=== PATIENT | female | born 1980 | race Caucasian/White ===

== ENCOUNTER 2018-03-09 21:11 | Inpatient (IN) | payer OTHER ==
[~2018-03-09] VITALS: Ht 160 cm; Wt 71.7 kg
--- NOTE | 2018-03-09 22:02 | ED PSYCHIATRIC COMPLAINT ---
History of Present Illness General Chief Complaint: Psychiatric Related Complaint Stated Complaint: +SI Source: patient, family, old records Exam Limitations: no limitations Vital Signs & Intake/Output Vital Signs & Intake/Output Vital Signs Date Time Temp Pulse Resp B/P B/P Pulse O2 O2 Flow FiO2 Mean Ox Delivery Rate 03/10 0639 97.4 68 18 124/71 98 Room Air 03/10 0010 98.0 90 20 138/89 98 03/09 2116 96.8 99 20 166/101 97 Room Air ED Intake and Output 03/10 0000 03/09 1200 Intake Total Output Total Balance Patient 157 lb Weight Allergies Coded Allergies: oxycodone (Severe, UPSET STOMACH 03/09/18) Triage Note: PT TO TRIAGE FOR +SI. PT REPORTS "TRIED TO OFF MYSELF TODAY, BY CUTTING WRIST." NO ACTIVE BLEEDING NOTED. PER PT "IT'S BEEN A LONG TIME COMING." PT REPORTS MANY TRIGGERS BUT REFUSED TO ELABORATE. DENIES ILLICIT DRUG USE. DENIES HI. CALM/COOPERATIVE. Triage Nurses Notes Reviewed? yes Onset: yesterday Duration: day(s):, changing over time, gone now Timing: recent history Severity: moderate, severe Associated Symptoms: injury, insomnia, suicidal ideation LMP (ages 10-50): unknown : No Patient currently breastfeeds: No HPI: 1 day prior to admission patient was frustrated with her life and daughter family would be better off without her so she abraded her right wrist with a moya in an attempt to kill herself. Prior to admission her significant other notified her family and brought her to the hospital for further management. She admits to recreational drug use of heroin cocaine and alcohol. She reports having poor eating habits insomnia. She is noncompliant with her medications for depression. 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 She denies fever chills nausea vomiting diarrhea abdominal pain chest pain shortness breath headache dysuria rash bleeding hallucination homicidal ideation. ([place] JEFFERS,Rogerio) Past History Travel History Traveled to [place] past 21 day No Medical History Any Pertinent Medical History? 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 No (Rogerio Hough MD) Review of Systems Review of Systems Constitutional: Reports: no symptoms. EENTM: Reports: no symptoms. Respiratory: Reports: no symptoms. Cardiovascular: Reports: no symptoms. GI: Reports: no symptoms. Genitourinary: Reports: no symptoms. Musculoskeletal: Reports: no symptoms. Skin: Reports: see HPI. Neurological/Psychological: Reports: see HPI, depressed, emotional problems. Hematologic/Endocrine: Reports: no symptoms. Immunologic/Allergic: Reports: no symptoms. All Other Systems: Reviewed and Negative (Rogerio Hough MD) Physical Exam Physical Exam General Appearance: well developed/nourished, alert, awake, anxious, mild distress Head: atraumatic, normal appearance Eyes: Bilateral: normal appearance, PERRL, EOMI. Ears, Nose, Throat: normal pharynx, normal ENT inspection, hearing grossly normal Neck: normal inspection, supple, full range of motion, no midline tenderness Respiratory: normal breath sounds, chest non-tender, no respiratory distress, quiet respiration, lungs clear Cardiovascular: regular rate/rhythm, normal peripheral pulses, norml femoral pulses equa Gastrointestinal: normal bowel sounds, soft, non-tender, no organomegaly Extremities: normal range of motion, no ligament instability Neurological/Psychiatric: no motor/sensory deficits, awake, agitated, alert, anxious, lead oxide mill tender II-XII nml as tested, oriented x 3 Appearance/Memory/Insight: impaired insight Behavoir/Eye Contact/Speech: cooperative, normal speech Thoughts/Hallucinations: no apparent hallucination Skin: intact, normal color, warm/dry SAD PERSONS SAD PERSONS Response Value Depression/Hopelessness? yes 2 Previous Attempts/Psych Care yes 1 Excessive Ethanol/Drug Use? yes 1 Rational Thinking Loss? yes 2 Single//? yes 1 Social Support? has support 0 Total 7 SAD PERSONS Done? yes (Rogerio Hough MD) Progress Differential Diagnosis: drug intoxication, drug overdose, drug withdrawal, electrolyte abnormality, hypoglycemia Plan of Care: Orders Procedure Date/time Status Regular Diet 03/10 B Active Admit to inpatient psych 03/10 0855 Active EKG 03/10 0855 Active Continuous Observation Monitor 03/10 0540 Active Continuous Observation Monitor 03/10 0140 Active Continuous Observation Monitor 05/10 2146 Active CIWA 03/09 2146 Active URINE 03/09 2146 Complete URINE DRUG SCREEN FOR ER ONLY 03/09 2146 Complete ACETOMINOPHEN 03/09 2146 Complete TSH REFLEX 03/09 2146 Complete SALICYLATE 03/09 2146 Complete ETHANOL 03/09 2146 Complete COMPREHENSIVE METABOLIC PANEL 03/09 2146 Complete CBC WITHOUT DIFFERENTIAL 03/09 2146 Complete ED CRISIS PSYCH CONSULT 03/09 2146 Active Laboratory Tests 03/10/18 0645: Urine Opiates Screen < 100, Methadone Screen < 40, Barbiturate Screen < 60, Ur Phencyclidine Scrn < 6.00, Amphetamines Screen 221, U Benzodiazepines Scrn < 85, Urine Cocaine Screen > 1000.0 H, Urine Cannabis Screen < 5.00, Urine Test NEGATIVE 03/09/180: Anion Gap 15, Estimated GFR > 60, BUN/Creatinine Ratio 11.1, Glucose 89, Calcium 8.7, Total Bilirubin 0.3, AST 28, ALT 31, Alkaline Phosphatase 98, Total Protein 7.9, Albumin 4.4, Globulin 3.5, Albumin/Globulin Ratio 1.3, TSH &T3 &Free T4 Intrp 2.560, CBC w Diff NO MAN DIFF REQ, RBC 3.97 L, MCV 94.9, MCH 30.7, MCHC 32.3 L, RDW 14.4, MPV 7.1 L, Gran % 57.3, Lymphocytes % 33.5, Monocytes % 8.3, Eosinophils % 0.4, Basophils % 0.5, Absolute Granulocytes 5.0, Absolute Lymphocytes 2.9, Absolute Monocytes 0.7 H, Absolute Eosinophils 0, Absolute Basophils 0, Salicylates < 1.0, Acetaminophen < 10.0 L, Serum Alcohol 197.0 Hand-Off Endorsed To: Bradly Kern MD Endorsed Time: 0700 Pending: consult (crisis), labs (utox) (Rogerio Hough MD) Departure Departure Disposition: STILL A PATIENT Condition: Stable Referrals: Kris Whelan MD (PCP/Family) Departure Forms: Customer Survey General Discharge Information (Rogerio Hough MD) Departure Clinical Impression Primary Impression: Depression with suicidal ideation Secondary Impressions: Alcohol intoxication Qualifiers: Complication of substance-induced condition: uncomplicated Qualified Code: F10.920 - Alcohol use, unspecified with intoxication, uncomplicated Psych Admission Note Psychiatric Admission: I have seen and evaluated ALEKSIEWICZ,SRIDEVI. I have also reviewed all the pertinent lab results and diagnostic results. SRIDEVI MARKHAM will be admitted to our inpatient Psychiatric unit for treatment and care. (Concha JEFFERS,Bradly Pedro)
[2018-03-09 22:09] LABS: ABSOLUTE BASOPHIL COUNT 0 /CUMM (0.0-0.2); ABSOLUTE EOSINOPHIL COUNT 0 /CUMM (0.0-0.7); ABSOLUTE LYMPH COUNT 2.9 /CUMM (1.2-3.4); ABSOLUTE MONOCYTE COUNT 0.7 /CUMM (0.10-0.60); BASOPHIL % 0.5 % (0.0-2.0); EOSINOPHIL % 0.4 % (0-5); GRANULOCYTE % 57.3 % (42.2-75.2); HEMATOCRIT 37.6 % (37-47); MEAN CORPUSCULAR HGB 30.7 PG (27.0-31.0); MEAN CORPUSCULAR HGB CONC 32.3 G/DL (33.0-37.0); MEAN CORPUSCULAR VOLUME 94.9 FL (81.0-99.0); MEAN PLATELET VOLUME 7.1 FL (7.4-10.4); PLATELET COUNT 347 /CUMM (130-400); RBC DISTRIBUTION WIDTH 14.4 % (11.5-14.5); RED BLOOD CELL CT 3.97 /CUMM (4.20-5.40); WHITE BLOOD CELL COUNT 8.8 /CUMM (4.8-10.8)
--- NOTE | 2018-03-10 08:26 | ED PSYCH CRISIS CONSULTATION ---
Crisis Consult Basic Assessment Date of Consult: 03/10/18 Responsible Person/Accompanied By: self/family Insurance Authorization: Insurance #1: Insurance name: SELF-PAY Phone number: Policy number: Group number: Authorization number: ED Provider: Patient's ED Provider: Rogerio Hough MD Primary Care Physician: Patient's PCP: Kris Whelan MD PCP's Current Psychiatrist: none Chief Complaint: Psychiatric Related Complaint Patient's Quote: I have a lot of rage Present Illness: Pt is a 37yo female presenting to [place] ED last evening with reports of SI and recent incident of cutting her wrist. Pt reports experiencing SI for the first time Tue evening and she cut her wrist with a moya causing it to bleed and texted a picture of it to her bf of 7 yrs. She reports recent conflict in their relationship and she has been abusing etoh and cocaine. She reports 3 day drinking binges typically of 1 litre of vodka and cocaine. She reports always using cocaine when drinking. She reports no hx of mental health or substance abuse tx. She reports her pcp in the past has tried her on Prozac and Wellbutrin but she reports never taking either consistently and is currently not taking medications. Pt reports last 3 days off and on SI. During consult she reports having SI but no active plan. Pt reports labile mood; being easily triggered and fighting a lot. She reports poor appetite, insomnia, loss of energy,sadness and feeling helpless. 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 Pt presents as depressed, cooperative and OX3. Pt reports her bf and family talked her in to coming to hospital for an evaluation but admits she thinks she needs inpatient tx. Case reviewed with Dr Mg. Recommendation for inpatient psychiatric treatment. Pt agrees with plan and signed voluntary form for admission to [facility]. Patient's Address: [address] [place], [place] [id number] Other Phone Number: Who Do You Live With? Significant Other Family/Informants Interviewed: collateral provided by pt mother Kit . She reports Concern that pt has been recently acting erratic possibly due to alcohol and drug use. She reports pt has been appearing depressed with mood swings. She reports pt bf contacted her yesterday after he received a text with picture from pt of her wrist cut. She reports concern that pt may harm self and hopes she can receive inpatient treatment. Allergies - Coded Allergies: oxycodone (Severe, UPSET STOMACH 03/09/18) Current Medications - Scheduled Medications Bupropion HCl (Bupropion XL) 150 MG TAB.ER.24H 1 TAB PO QAM MENTAL HEALTH #30 (Reported) Entered as Reported by Toño Sims on 03/10/18 0858 Fluoxetine HCl 20 MG TABLET 1 TAB PO DAILY MENTAL HEALTH #30 (Reported) Entered as Reported by Toño Sims on 03/10/18 0858 Norgestimate-Ethinyl Estradiol (Tri-Previfem Tablet) [id number] 28 TABLET 1 TAB PO DAILY BC #28 (Reported) Entered as Reported by Toño Sims on 03/10/18 0857 Laboratory Results: Laboratory Tests 03/10/18 0645: Urine Opiates Screen < 100, Methadone Screen < 40, Barbiturate Screen < 60, Ur Phencyclidine Scrn < 6.00, Amphetamines Screen 221, U Benzodiazepines Scrn < 85, Urine Cocaine Screen > 1000.0 H, Urine Cannabis Screen < 5.00, Urine Test NEGATIVE 03/09/18 2200: Anion Gap 15, Estimated GFR > 60, BUN/Creatinine Ratio 11.1, Glucose 89, Calcium 8.7, Total Bilirubin 0.3, AST 28, ALT 31, Alkaline Phosphatase 98, Total Protein 7.9, Albumin 4.4, Globulin 3.5, Albumin/Globulin Ratio 1.3, TSH &T3 &Free T4 Intrp 2.560, CBC w Diff NO MAN DIFF REQ, RBC 3.97 L, MCV 94.9, MCH 30.7, MCHC 32.3 L, RDW 14.4, MPV 7.1 L, Gran % 57.3, Lymphocytes % 33.5, Monocytes % 8.3, Eosinophils % 0.4, Basophils % 0.5, Absolute Granulocytes 5.0, Absolute Lymphocytes 2.9, Absolute Monocytes 0.7 H, Absolute Eosinophils 0, Absolute Basophils 0, Salicylates < 1.0, Acetaminophen < 10.0 L, Serum Alcohol 197.0 Past History Past Medical History Neurological: NONE EENT: NONE Cardiovascular: NONE Respiratory: NONE Gastrointestinal: NONE Hepatic: NONE Renal: NONE Musculoskeletal: NONE Psychiatric: depression Endocrine: NONE Blood Disorders: NONE Cancer(s): NONE 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 Past Surgical History Surgical History: non-contributory Psychosocial History 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 Drinking up to 1 liter vodka per day. Current Mental Status Mental Status Orientation: Person, Place, Situation Affect: Depressed Speech: WNL Neuro-vegetative: Appetite Decreased, Concentration Poor, Energy Decreased, Helpless, Loss of Interest, Sleep Disturbance Appearance Appearance- Dress/Hygiene: hospital scrubs; groomed; sitting up in bed; engaged Behaviors Thought Process: WNL Thought Content: WNL Memory: WNL Insight: WNL SI/HI Risk Assessment Past Suicidal Ideation/Attempts Yes Current Suicidal Ideation/Att Yes Past Homicidal Ideation/Att: No Current Homicidal Ideation/Attempts No Degree of Intent: Thoughts/No Intent Danger To: Self Gravely Disabled: Poor Impulse Control, Poor Judgment Risk Factors: high anxiety/distress, history of suicide atmpts, substance abuse, poor impulse control Lethality Ratin PTSD Checklist PTSD Done? patient declined ED Management Sitter: Yes Restraints: No DSM5/PS Stressors/Medical Prob Diagnosis' (DSM 5, Stressors, Medical): Unspecified Depression d/o F32.9 Alcohol Use d/o F10.20 Cocaine Use D/O 14.20 relationship conflict with bf parent-child conflict Current GAF: 25 Comments: pt reports stress and conflict with bf and family increasing due to her labile mood and substance use. Pt reporting SI and is easily triggered/fights a lot. Departure Disposition Psych Medical Clearance Date: 03/10/18 Medically Cleared at: 729 Time Started: 729 Time Ended: 814 Date Disposition Established: 03/10/18 Time Disposition Established: 829 Plan for Disposition - Modality: Inpatient Psychiatry Facility: [facility] Rationale for Disposition: Mood stabilization; medication assessment Type of IP Admission: Voluntary Referrals Kris Whelan MD (PCP/Family)
[2018-03-10] MEDS ORDERED: TRI-PREVIFEM T1 EACH PO (08:57)
[2018-03-10] MEDS ORDERED: BUPROPION XL150 MG PO (08:58)
[2018-03-10] MEDS ORDERED: FLUOXETINE HCL20 M3 PO (08:58)
--- NOTE | 2018-03-10 10:47 | IP CRISIS DIAG ASSESS PSYCH ---
Diagnostic Assessment Basic Assessment Insurance Authorization: Insurance #1: Insurance name: WENCESLAO [id number] Phone number: Policy number: Group number: Authorization number: [id number] Primary Care Physician: Patient's PCP: Kris Whelan MD PCP's Patient's Quote: I have a lot of rage Present Illness: Pt is a 37yo female presenting to [place] ED last evening with reports of SI and recent incident of cutting her wrist. Pt reports experiencing SI for the first time Tue evening and she cut her wrist with a moya causing it to bleed and texted a picture of it to her bf of 7 yrs. She reports recent conflict in their relationship and she has been abusing etoh and cocaine. She reports 3 day drinking binges typically of 1 litre of vodka and cocaine. She reports always using cocaine when drinking. She reports no hx of mental health or substance abuse tx. She reports her pcp in the past has tried her on Prozac and Wellbutrin but she reports never taking either consistently and is currently not taking medications. Pt reports last 3 days off and on SI. During consult she reports having SI but no active plan. Pt reports labile mood; being easily triggered and fighting a lot. She reports poor appetite, insomnia, loss of energy,sadness and feeling helpless. 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 Pt presents as depressed, cooperative and OX3. Pt reports her bf and family talked her in to coming to hospital for an evaluation but admits she thinks she needs inpatient tx. Case reviewed with Dr Mg. Recommendation for inpatient psychiatric treatment. Pt agrees with plan and signed voluntary form for admission to [facility]. Patient's Address: [address] [place] [address] Other Phone Number: Who Do You Live With? Significant Other Feel Safe Where You Live? Yes Feel Safe in Your Relationship Yes Marital Status: single Do You Have Children? No Primary Language? Kinyarwanda Language(s) Spoken At Home: Kinyarwanda Family/Informants Interviewed: collateral provided by pt mother Kit [phone]. She reports Concern that pt has been recently acting erratic possibly due to alcohol and drug use. She reports pt has been appearing depressed with mood swings. She reports pt bf contacted her yesterday after he received a text with picture from pt of her wrist cut. She reports concern that pt may harm self and hopes she can receive inpatient treatment. Allergies - Coded Allergies: oxycodone (Severe, UPSET STOMACH 03/09/18) Current Medications - Scheduled Medications Bupropion HCl (Bupropion XL) 150 MG TAB.ER.24H 1 TAB PO QAM MENTAL HEALTH #30 (Reported) Entered as Reported by Toño Sims on 03/10/18 0858 Fluoxetine HCl 20 MG TABLET 1 TAB PO DAILY MENTAL HEALTH #30 (Reported) Entered as Reported by Toño Sims on 03/10/18 0858 Norgestimate-Ethinyl Estradiol (Tri-Previfem Tablet) [id number] 28 TABLET 1 TAB PO DAILY BC #28 (Reported) Entered as Reported by Toño Sims on 03/10/18 0857 Consequences of Psych Med Use: pt reports hx of prozac and wellbutrin bot no current medications Lab Results: Laboratory Tests 03/10/18 0645: Urine Opiates Screen < 100, Methadone Screen < 40, Barbiturate Screen < 60, Ur Phencyclidine Scrn < 6.00, Amphetamines Screen 221, U Benzodiazepines Scrn < 85, Urine Cocaine Screen > 1000.0 H, Urine Cannabis Screen < 5.00, Urine Test NEGATIVE 03/09/18 2200: Anion Gap 15, Estimated GFR > 60, BUN/Creatinine Ratio 11.1, Glucose 89, Calcium 8.7, Total Bilirubin 0.3, AST 28, ALT 31, Alkaline Phosphatase 98, Total Protein 7.9, Albumin 4.4, Globulin 3.5, Albumin/Globulin Ratio 1.3, TSH &T3 &Free T4 Intrp 2.560, CBC w Diff NO MAN DIFF REQ, RBC 3.97 L, MCV 94.9, MCH 30.7, MCHC 32.3 L, RDW 14.4, MPV 7.1 L, Gran % 57.3, Lymphocytes % 33.5, Monocytes % 8.3, Eosinophils % 0.4, Basophils % 0.5, Absolute Granulocytes 5.0, Absolute Lymphocytes 2.9, Absolute Monocytes 0.7 H, Absolute Eosinophils 0, Absolute Basophils 0, Salicylates < 1.0, Acetaminophen < 10.0 L, Serum Alcohol 197.0 Toxicology Screen Completed? Yes Results: positive Symptoms of Use: etoh and cocaine Past History Abuse/Trauma History Trauma History/Current Trauma: emotional Victim or Perpretator? victim Patient's Age at Time of Trauma: 7 History of Trauma/Abuse Treatment? No Abuse/Trauma Treatment: father was alcoholic/strict/verbally abusive Legal History Current Legal Status: none Have you ever been arrested? 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 History Psych Treatment Psychiatric Treatment No Inpatient Treatment No Outpatient Treatment No Risk Factors: high anxiety/distress, history of suicide atmpts, substance abuse, poor impulse control Substance Use/Abuse History Drug Use/Abuse minimum 12mo Hx Substances Used/Abused No Substance Used/Abused Alcohol Last Used last night How much used/taken 1 litre vodka How often 3 day binges Substance Abuse Treatment Substance Abuse Treatment Past Substance Abuse [place] No Inpatient Treatment No Outpatient Treatment No Comments: pt reports 3 day binges of etoh and cocaine Education History Highest Level of Education: some college Preferred Learning Style: visual, auditory, experiential Current Mental Status Mental Status Orientation: Person, Place, Situation Affect: Depressed Speech: WNL Neuro-vegetative: Appetite Decreased, Concentration Poor, Energy Decreased, Helpless, Loss of Interest, Sleep Disturbance Appearance Appearance- Dress/Hygiene: hospital scrubs; groomed; sitting up in bed; engaged Behaviors Thought Process: WNL Thought Content: WNL Memory: WNL Insight: WNL SI/HI Risk Assessment - Minimum 6mo History- Past Suicidal Ideation/Attempts Yes Current Suicidal Ideation/Att Yes Past Homicidal Ideation/Att: No Current Homicidal Ideation/Attempts No Degree of Intent: Thoughts/No Intent Danger To: Self Gravely Disabled: Poor Impulse Control, Poor Judgment Risk Factors: high anxiety/distress, history of suicide atmpts, substance abuse, poor impulse control Lethality Ratin Needs/Init TX Plan/Goals: Psychiatric evaluation Medication assessment Individual, Family and Group Tx Coordinated discharge planning AUDIT-C Questionnaire: AUDIT-C Questionnaire: Response Value ETOH use in the past year 4 or more per week 4 # drinks typical/day 10 or more 4 6 or > drinks per occasion Daily/Almost Daily 4 Total 12 DSM5/PS Stressors/Medical Prob Diagnosis' (DSM 5, Stressors, Medical): Unspecified Depression d/o F32.9 Alcohol Use d/o F10.20 Cocaine Use D/O 14.20 relationship conflict with bf parent-child conflict Current GAF: 25 Comments: pt reports stress and conflict with bf and family increasing due to her labile mood and substance use. Pt reporting SI and is easily triggered/fights a lot.
--- NOTE | 2018-03-10 10:58 | SOCIAL WORKER PROG NOTE PSYCH ---
Social Work Progress Note Progress Note Determination Status: PENDED The services requested require additional review. You will be contacted regarding the status of this request if further information is needed. An authorization decision will be made within the required timeframes and details of that decision may be found under the member's authorization history. Member Name Member ID Member Subscriber Name Subscriber ID SRIDEVI MARKHAM [id number] SRIDEVI MARKHAM [id number] Pended Authorization # Client Authorization # Type of Request [id number] INITIAL Date of Admission/ Start of Services Requested From Submission Date 03/10/2018 03/10/2018 03/10/2018 Level of Service Type of Service Level of Care Type of Care INPATIENT/[facility] MENTAL HEALTH INPATIENT [facility]IENT [facility] - INPATIENT [facility]OSPITAL Reason Code [id number] Provider Name & Address Provider ID Provider Alternate ID NPI # for Authorization FRANCISCO STOCKTON [id number] [facility] [id number]
[2018-03-10 12:08] VITALS: BP 139/76
[2018-03-10 12:13] VITALS: BP 139/76
--- NOTE | 2018-03-10 13:39 | History & Physical ---
General Information and HPI MD Statement: I have seen and personally examined SRIDEVI MARKHAM and documented this H&P. The patient is a 37 year old F who presented with a patient stated chief complaint of ."tried to off Myself by cutting wrist." Source of Information: patient Exam Limitations: no limitations History of Present Illness: 37-year-old white female is not compliant with her medications for depression has had suicidal ideations for 2 days it has had conflicts with her boyfriend. Also uses some alcohol and cocaine and has a labile mood, lack of appetite, insomnia, lack of energy and feels sad and helpless and she lacerated her right wrist with a coin. For all these reasons is admitted for evaluation and treatment. Allergies/Medications Allergies: Coded Allergies: oxycodone (Severe, UPSET STOMACH 03/09/18) Home Med list Bupropion HCl (Bupropion XL) 150 MG TAB.ER.24H 1 TAB PO QAM MENTAL HEALTH ( Reported) Fluoxetine HCl 20 MG TABLET 1 TAB PO DAILY MENTAL HEALTH (Reported) Norgestimate-Ethinyl Estradiol (Tri-Previfem Tablet) [id number] 28 TABLET 1 TAB PO DAILY BC (Reported) Compliance With Home Meds: UNKNOWN Past History Travel History Traveled to [place] past 21 day No Medical History Neurological: NONE, restless leg syndrome EENT: NONE Cardiovascular: NONE Respiratory: NONE Gastrointestinal: NONE Hepatic: NONE Renal: NONE Musculoskeletal: NONE Psychiatric: depression Endocrine: NONE Blood Disorders: NONE Cancer(s): NONE 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 Home ETOH Use: occasional use Review of Systems Review of Systems Constitutional: Reports: see HPI. Exam & Diagnostic Data Last 24 Hrs of Vital Signs/I&O Vital Signs Date Time Temp Pulse Resp B/P B/P Pulse O2 O2 Flow FiO2 Mean Ox Delivery Rate 03/10 1213 97.8 79 139/76 03/10 1208 97.8 79 139/76 03/10 1019 98.0 71 18 128/70 99 Room Air 03/10 1015 98 Room Air 03/10 0639 97.4 68 18 124/71 98 Room Air 03/10 0010 98.0 90 20 138/89 98 03/09 2116 96.8 99 20 166/101 97 Room Air Intake & Output 03/10 1600 03/10 0800 03/10 0000 Intake Total Output Total Balance Patient 158 lb 157 lb Weight Physical Exam General Appearance Alert, Oriented X3, Cooperative, No Acute Distress Skin superficial laceration on the right wrist HEENT PERRLA, EOMI, Mucous Membr. moist/pink Neck Supple, No JVD, No thryomegaly, +2 Carotid Pulse wo Bruit, No LAD Lymphatic Axillary nl, Cervical nl Cardiovascular Regular Rate, No Murmurs Lungs Clear to Auscultation, Normal Air Movement Abdomen Soft, No Tenderness, No Hepatospenomegaly, No Masses Neurological Exam Findings: Normal Gait, Normal Speech, Strength at 5/5 X4 Ext, Normal Tone, Sensation Intact, Cranial Nerves 3-12 NL, Reflexes 2+ Cranial Nerves II through XII: Intact Extremities No Edema, Normal Pulses, No Tenderness/Swelling Vascular Normal Pulses, Pulses Symmetrical Last 24 Hrs of Labs/Tam: Laboratory Tests 03/10/18 0645: Urine Opiates Screen < 100, Methadone Screen < 40, Barbiturate Screen < 60, Ur Phencyclidine Scrn < 6.00, Amphetamines Screen 221, U Benzodiazepines Scrn < 85, Urine Cocaine Screen > 1000.0 H, Urine Cannabis Screen < 5.00, Urine Test NEGATIVE 03/09/18 2200: Anion Gap 15, Estimated GFR > 60, BUN/Creatinine Ratio 11.1, Glucose 89, Calcium 8.7, Total Bilirubin 0.3, AST 28, ALT 31, Alkaline Phosphatase 98, Total Protein 7.9, Albumin 4.4, Globulin 3.5, Albumin/Globulin Ratio 1.3, TSH &T3 &Free T4 Intrp 2.560, CBC w Diff NO MAN DIFF REQ, RBC 3.97 L, MCV 94.9, MCH 30.7, MCHC 32.3 L, RDW 14.4, MPV 7.1 L, Gran % 57.3, Lymphocytes % 33.5, Monocytes % 8.3, Eosinophils % 0.4, Basophils % 0.5, Absolute Granulocytes 5.0, Absolute Lymphocytes 2.9, Absolute Monocytes 0.7 H, Absolute Eosinophils 0, Absolute Basophils 0, Salicylates < 1.0, Acetaminophen < 10.0 L, Serum Alcohol 197.0 Assessment/Plan As Ranked By This Provider Problem List: 1. Alcohol intoxication Qualifiers Complication of substance-induced condition: uncomplicated Qualified Code: F10.920 - Alcohol use, unspecified with intoxication, uncomplicated 2. Depression with suicidal ideation Miscellaneous Miscellaneous Documentation Attending Case Discussed With: Robb Mg MD Primary Care Physician: Kris Whelan MD Patient sees these Specialists Psychiatry Level of Patient Care: [facility] Consults Needed: Consulting Specialty: Psychiatry Consulting Physician: Dr Fox Reason for Consult: depression suicidal ideations
[2018-03-10 16:08] VITALS: BP 121/72
[2018-03-10 16:13] VITALS: BP 121/72
[2018-03-10 18:09] VITALS: BP 128/69
[2018-03-10 20:07] VITALS: BP 133/75
[2018-03-11] VITALS (12 sets, daily range): BP systolic 120–134; BP diastolic 64–82
--- NOTE | 2018-03-11 12:02 | CPS PROVIDER INIT ASMT PSYCH ---
Psychiatric Admission Director Of Outpatient Services's Note Reviewed: Yes Patient Seen and Examined: Yes Identifying Information: Pt is a 37yo female presenting to [place] [facility] ED last evening with reports of SI and recent incident of cutting her wrist. Chief Complaint: I have a lot of rage Reaction to Hospitalization: The patient was admitted voluntarily History of Present Illness Onset of Illness: The patient presented to the emergency department the evening of 03/09/2018 and was evaluated by crisis intervention on 03/10/2018 and it was determined that the patient needed admission because of the suicidal ideation and also scratching her right forearm/wrist area with a moya. Circumstances Leading to Admission: Thoughts of suicide and self scratching Problem(s) Justifying Need for Admission: See above Past Psychiatric History Past Diagnosis(es)- if any: Unspecified Depression d/o F32.9 Alcohol Use d/o F10.20 Cocaine Use D/O 14.20 relationship conflict with bf parent-child conflict Past Precipitating Factors- if any: Substance use - Include inpatient and outpatient treatment Treatment History: Patient denied previous inpatient psychiatric admissions. History of Suicide Attempts or Gestures Record indicated there was a history of suicide attempts but no details were given Substance Abuse History: Alcohol use and cocaine use Allergies: Coded Allergies: oxycodone (Severe, UPSET STOMACH 03/09/18) Home Med List: The patient was not taking the prescribed Prozac and Wellbutrin, she is also on oral contraceptive pills - Include any medical condition(s) that may - impact the patient's recovery/remission Past Medical History: The patient is generally physically healthy Past History Medical History Neurological: NONE, restless leg syndrome EENT: NONE Cardiovascular: NONE Respiratory: NONE Gastrointestinal: NONE Hepatic: NONE Renal: NONE Musculoskeletal: NONE Psychiatric: depression Endocrine: NONE Blood Disorders: NONE Cancer(s): NONE 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 History of MRSA: No History of VRE: No History of CDIFF: No Isolation History: Standard Surgical History Surgical History: non-contributory Psychiatric Family/Social Hx Family History Psychiatric Illness: Was not explored Substance Use: Was not explored, please see the biopsychosocial assessment Suicides: Not explored Social History Living Situation: Please see biopsychosocial assessment Significant Relationships (family/friends): Please see biopsychosocial assessment Education: Please see biopsychosocial assessment Vocation/Occupation: Please see biopsychosocial assessment Legal: Please see biopsychosocial assessment Healthly Behaviors Screening Tobacco Screening Tobacco Use from ED Docu: Never used - If tobacco counseling indicated - the following topics are required. - #1 Recognizing dangerous situations. - #2 Coping Skills. - #3 Basic information about quitting. Status of Tobacco Cessation Counseling: Not Applicable Cessation Med Status Not Applicable Alcohol Screening - ETOH screen POS if BAL >=80 or Audit-C>= M4/F3 Audit-C Score from Diag Assess: 12 Blood Alcohol Level: Laboratory Tests 03/09 2200 Toxicology Serum Alcohol (<10 MG/DL) 197.0 Alcohol Use Screening Results: Pos per Audit C &/or BAL - If ETOH counseling indicated - the following topics are required. - #1 Express concern about the patient's - drinking at unhealthy levels, include informing - of national norms for moderate drinking: - men <= 14 drinks/week, max 4 drinks/occasion - women <= 7 drinks/week, max 3 drinks/occasion - #2 Providing feedback, including linking alcohol to - negative physical effects (liver injury, hypertension) - negative emotional effects (relationship problems and - depression) - negative occupational consequences (reduced work - performance) - #3 Advising the patient to abstain from alcohol or - to drink below national norms for moderate drinking - (as listed above). Status of ETOH Use Counseling: #1, #2 AND #3 Completed. Metabolic Screening - Screen if on a Neuroleptic Medication - Metabolic screening should include: - Blood Pressure, BMI, Glucose or Hgb A1c, & a - Lipid profile from within the past 365 days. Metabolic Screening ([X]) Not Applicable, patient not on a neuroleptic. Exam and Plan Mental Status Examination Ambulation Status: The patient had steady gait Appearance: Unremarkable appearance Attitude towards examiner: Patient was calm and cooperative Psychomotor activity: Showed normal psychomotor activity Behavior: No abnormal behaviors, no bizarre behaviors Quality of speech: Normal speech, not pressured, not slurred Affect: Good range of affect Mood: Anxious and somewhat depressed Suicidal Ideation: Denied thinking of suicide today Homicidal Ideation: Denied thoughts of violence or thoughts of homicide Hallucinations: Denied hallucinations Paranoid/Delusional Material: Denied feeling paranoid, there were no delusions during the interview Difficulties with thought organization: Patient was coherent, did not seem to have any thought disorder Insight: Partial insight Judgment: Seems to have good judgment at least in hypothetical situations Orientation: She was alert and oriented to time, place, and person. Cognition: Did not seem to have any difficulties with attention or concentration, no difficulties with information processing Memory Function: Did not seem to have any deficits in her short-term memory Estimate of intellectual functioning: Average Assets/Strengths Patient Identified Assets/Strengths: The patient is likable, well-educated, Impression/Plan Impression and Plan: 37-year-old white female who presents with suicidal ideation but also fairly daughter for detoxification from alcohol - Include all active medical diagnosis that require tx DSM 5 Diagnosis(es): Unspecified depressive disorder Alcohol use disorder - Initial Tx Plan for Active Psych & Medical Conditions Treatment Plan: Inpatient psychiatric care with safety checks every 15 minutes Alcohol detoxification using Ativan taper Nursing assessments, vital signs, and patient education in Biopsychosocial assessment by director social welfare, collateral information and aftercare planning Patient will be evaluated daily by psychiatrist for mental status updates as well as medication monitoring - Factors that would help patient function - in a less restrictive setting. Factors: Patient will be discharged when she has 2 consecutive days without thoughts of suicide
--- NOTE | 2018-03-11 17:07 | SOCIAL WORKER SOCIAL HX PSYCH ---
Social History Basic Assessment Insurance Authorization: Insurance #1: Insurance name: SELF-PAY Phone number: Policy number: Group number: Authorization number: [id number] Primary Care Physician: Patient's PCP: Kris Whelan MD PCP's Present Problem: Pt is a 37y.o. S/C/F with a history of unspecified depression, alcohol use, cocaine use, and heroin use in full remission, who presented to the hospital on 03/09/18 due to suicidal ideations and an attempt to kill herself by cutting her wrist while intoxicated. Pt was seen by crisis and voluntarily signed herself in to [facility] for psychiatric admission on 03/10/18. Upon meeting with this display card writer, pt presents as cooperative, coherent, pleasant, but disheveled and tearful at times. She denies SI/HI/AH/VH. She states she "only gets suicidal when she uses substances". She says she was in an argument with her boyfriend of 7 years which is why she cut her wrist with intent to . Pt says, "if I had a knife I would be right now but I didn't have a knife". Pt reports this is the first time she has ever actually done anything to harm herself as typically she "just wishes she were ". Pt says she and her boyfriend have been having problems lately because he "usually lets me do what I want and green party if I want to, but lately he has been trying to stop me". Pt says she typically goes on 3 days binges of cocaine and vodka at least once a week. However, denies missing work due to her substance use. 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 She reports using drugs since she was 17 years old, which she says she initially started to rebel against her father's strict parenting style. Pt denies any history of substance abuse treatment, and says she used heroin as well up until about 2 years ago when she weaned herself off. She denies any desire to use opiates since she stopped. Pt denies any history of mental health treatment until 2 years ago when she asked her PCP for an antidepressant and was placed on Prozac 20mg. Shortly after, she noticed a decrease in her libido which is why she switched to Wellbutrin. She says she didn't think the Wellbutrin was working but was feeling better so she stopped everything. She reports having increased irritability, poor appetite, poor sleep , and increased substance use. Pt admits that she is not sure if she wants to stop using substances and wants her family and boyfriend to "get off her ass" and "let her do what she wants". She reports her family and boyfriend have made her feel trapped and are always "breathing down her neck which makes her want to use more". However, pt does recognize "something is wrong" because she "knows it is not okay that she wanted to kill herself". She identifies her purpose for living is for the people she knows love her, such as her boyfriend, parents, siblings, and dog. Primary Language? Khmer Language(s) Spoken At Home: Khmer Living Situation Feel Safe Where You Are Living Yes Feel Safe in Relationships? Yes Comments: Resides with boyfriend of 7 years Allergies - Coded Allergies: oxycodone (Severe, UPSET STOMACH 03/09/18) Current Medications - Scheduled Medications Bupropion HCl (Bupropion XL) 150 MG TAB.ER.24H 1 TAB PO QAM MENTAL HEALTH #30 (Reported) Entered as Reported by Toño Sims on 03/10/18 0858 Fluoxetine HCl 20 MG TABLET 1 TAB PO DAILY MENTAL HEALTH #30 (Reported) Entered as Reported by Toño Sims on 03/10/18 0858 Last Taken: 03/08/18 1000 Norgestimate-Ethinyl Estradiol (Tri-Previfem Tablet) [id number] 28 TABLET 1 TAB PO DAILY BC #28 (Reported) Entered as Reported by Toño Sims on 03/10/18 0857 Last Taken: 03/08/18 1000 Past History Past Medical History Neurological: NONE, restless leg syndrome EENT: NONE Cardiovascular: NONE Respiratory: NONE Gastrointestinal: NONE Hepatic: NONE Renal: NONE Musculoskeletal: NONE Psychiatric: alcohol dependence, depression, substance abuse Endocrine: NONE Blood Disorders: NONE Cancer(s): NONE FITTING ROOM INSPECTOR/Reproductive: NONE Past Surgical History Surgical History: non-contributory /Family History Childhood Family Constellation: Pt states she lived with her mother, father, and 2 brothers. Brothers are currently 39 and 34. Pt states she has a closer relationship with her mother and 34 year old brother. She states her father was an alcoholic and extremely strict while growing up, resulting in her rebellious behavior. Primary Childhood Caretakers: father, mother Family Life During Childhood: Pt states she lived with her mother, father, and 2 brothers. Brothers are currently 39 and 34. Pt states she has a closer relationship with her mother and 34 year old brother. She states her father was an alcoholic and extremely strict while growing up, resulting in her rebellious behavior. DCF Involvement? No Relationship w/Mother: Pt states she continues to have a close relationship with her mother, but feels her mother is too overbearing, which causes pt to want to use substances more often. Relationship w/Father: Pt states her father lives in [place], [place]. She reports she still speaks with her father, however does not feel close to him due to his parenting style while she was growing up. Any Sibling(s)? Yes Sibling's Gender(s)/Age(s): male Sibling 1: (39), male Sibling 2: (34) Relationship w/Sibling(s): Pt reports being close with her 34 year old brother Relationship w/Friends: Pt reports most of her friends like to green party. She states her boyfriend "kind of " lets her do her own thing, which is why she thinks she has been with him for the past 7 years. Family Psych/Sub Abuse/Add Hx: drug of choice, treatment Other Comments: Pt denies having any children Abuse/Trauma History Trauma History/Current Trauma: emotional Victim or Perpretator? victim Patient's Age at Time of Trauma: 7 ("strict parents") History of Trauma/Abuse Treatment? No Abuse/Trauma Treatment: father was alcoholic/strict/verbally abusive Legal History Current Legal Status: none Pending Court Dates: N/A Have you ever been arrested No Hx of Juvenile Legal Charges? No Hx of Adult Legal Charges? 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 She denies missing work. 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 Pt states she is supposed to start school on Tuesday for her RN. She states she enjoys learning and going to school. Sense of humor, wanting to help and care for others Weaknesses: Substance use, poor insight, poor judgement, pre-contemplative stage Physical Limitations (Interventions): Denies History of Seizures? No History of Blackouts? No ADL Limitations: None Olive/Social/Peer Relations Pt states she ahs been with her boyfriend for the past 7 years. She states he lets her do what she wants most of the time which is why she thinks the relationship has worked. She admits she rebelled against her parents because they were so strict with her when she was growing up. Meaningful Activities: School, learning, making others laugh, helping others Is Spirituality Important to You? "I think someone wanted me to be here still or I would be . If I had a knife I would have been " Patient's Ethnicity: Barbadian Cultural/Ethnic Issues: "My father was very strict while I was growing up, so I rebelled. I realize now that he was right about most things." Psychiatric Treatment History Psych Treatment Inpatient Treatment Yes (Current at [facility]) Outpatient Treatment No (PCP prescribed medication) Reason for Treatment Pt states her PCP prescribed her Prozac 20mg about 2 years ago. She states she ended up having a decreased sex drive, which is why she ended up going on Wellbutrin, however she felt as if her Wellbutrin did not work- and therefore abruptly went off all her medication Response to Treatment Pt states her PCP prescribed her Prozac 20mg about 2 years ago. She states she ended up having a decreased sex drive, which is why she ended up going on Wellbutrin, however she felt as if her Wellbutrin did not work- and therefore abruptly went off all her medication Precipitating Factors: Pt states she asked her PCP for medication after she realized she just didn't care whether she lived or , had increased irritability, inconsistent sleep, inconsistent appetite, and increased susbtance use. 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 For how long since 17 years old Route of use oral Drug Use/Abuse:Min 12 mo hx 2 Substance Used/Abused Heroin First Use 17 years old Last Used 35 years old How much used/taken As often as possible, "people would give it to me" How often 3 day binges For how long approximately 20 years Route of use "snort, IV, smoke" Drug Use/Abuse:Min 12 mo hx 3 Substance Used/Abused Cocaine First Use 17 years old Last Used two days ago How much used/taken "I do an 8 ball a night" How often 3 days binges For how long since 17 years old Route of use snort Have Had Periods of Sobriety? Yes (about 2 or 3 weeks 3 years ago) Explain: Pt states she has been using since she was 17 years old, her longest sobriety was about 2 or 3 weeks, 3 years ago. She states she stopped using heroin 2 years ago because she did not like the withdrawal symptoms of not having it Relapse History? Yes Explain: Pt says she was sober for about 2 or 3 weeks about 3 years ago, and then started using again because she was "bored" Have You Ever Attended AA? No Do You Attend AA Currently? No Do You Have a Sponsor? 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 She states she plans on going back to school next Tuesday for her RN degree. 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 of Jobs in Last 5 Years: 2 Attendance: Normal Performance: Average Comments: Pt says she has never let her substance use get in the way of her employment. She states she will not use substances when she has work the next day. History Have You Been in The ? No Current Mental Status Mental Status Orientation: Person, Place, Situation Affect: Depressed, WNL (pleasant) Speech: WNL Neuro-vegetative: Appetite Decreased, Concentration Poor, Energy Decreased, Helpless, Loss of Interest, Sleep Disturbance Appearance Appearance- Dress/Hygiene: positive eye contact, tearful, disheveled Behaviors Thought Process: WNL Thought Content: WNL Memory: WNL Insight: Fair (pre-contemplative) SI/HI Risk Assessment Past Suicidal Ideation/Attempts Yes Current Suicidal Ideation/Att Yes Past Homicidal Ideation/Att: No Current Homicidal Ideation/Attempts No Degree of Intent: Self Destructive/No , States Intent, Thoughts/No Intent Danger To: Self Gravely Disabled: Poor Impulse Control, Poor Judgment Risk Factors: High Anxiety/Distress, SA/MH Hospitalization(s), Hx of suicide attempt(s), Lack of concern outcome, Poor impulse control, Substance Abuse Lethality Ratin - Conclusion and Recommendations for treatment - and discharge planning Summary: Pt is a 37y.o. S/C/F with a history of unspecified depression, alcohol use, cocaine use, and heroin use in full remission, who presented to the hospital on 03/09/18 due to suicidal ideations and an attempt to kill herself by cutting her wrist while intoxicated. Pt was seen by crisis and voluntarily signed herself in to [facility] for psychiatric admission. Upon meeting with this display card writer, pt presented as cooperative, coherent, pleasant, but disheveled and tearful at times. She continues to present with poor insight and judgement. Pt admits that she is not sure if she wants to stop using substances and wants her family and boyfriend to "get off her ass" and "let her do what she wants". She reports her family and boyfriend have made her feel trapped and are always "breathing down her neck which makes her want to use more". However, pt does recognize "something is wrong" because she "knows it is not okay that she wanted to kill herself". Pt will benefit from continued psychiatric admission at this time.
[2018-03-12] VITALS (8 sets, daily range): BP systolic 106–140; BP diastolic 64–70
--- NOTE | 2018-03-12 13:35 | CP SOUTH PROGRESS NOTE PSYCH ---
Psych (Inpt) Progress Note Progress Note Vital Signs Date Time Temp Pulse Resp B/P B/P Pulse O2 FiO2 03/12 1230 74 106/64 03/12 1153 74 106/64 03/12 0751 97.8 78 113/64 03/12 0741 97.9 78 113/64 03/11 2158 77 126/68 03/11 2012 98.5 75 130/67 03/11 2011 98.5 75 130/67 Mental Status Examination The patient had steady gait, she was alert and oriented to time, place, and person. Unremarkable appearance, Patient was calm and cooperative. Showed normal psychomotor activity No abnormal behaviors, no bizarre behaviors, Normal speech, not pressured, not slurred Good range of affect Anxious and somewhat depressed Denied thinking of suicide today Denied thoughts of violence or thoughts of homicide. Denied hallucinations, Denied feeling paranoid, there were no delusions during the interview Patient was coherent, did not seem to have any thought disorder, partial insight , Seems to have good judgment at least in hypothetical situations. She did not seem to have any difficulties with attention or concentration, no difficulties with information processing Did not seem to have any deficits in her short-term memory Assessment: Nydia is a 37-year-old White female who presents with suicidal ideation but also fairly daughter for detoxification from alcohol Diagnosis(es): Unspecified depressive disorder Alcohol use disorder Treatment Plan: Reduce CIWA to Q 4hours, Alcohol detoxification using Ativan taper Continue Prozac 40 mg daily Biopsychosocial assessment by social service director, collateral information and aftercare planning Patient will be evaluated daily by psychiatrist for mental status updates as well as medication monitoring well as medication monitoring
[2018-03-13] VITALS (8 sets, daily range): BP systolic 109–131; BP diastolic 57–78
--- NOTE | 2018-03-13 07:46 | CP SOUTH PROGRESS NOTE PSYCH ---
Psych (Inpt) Progress Note Progress Note The treatment team discussed the patient's progress, treatment plan, and aftercare plans. Treatment team included social work, nursing staff, therapy staff, and psychiatrist. Vital Signs Date Time Temp Pulse Resp B/P B/P Pulse O2 O2 Flow FiO2 Mean Ox Delivery Rate 03/136 97.1 87 109/62 03/13 0755 97.1 87 10962 03/12 2003 97.3 92 140/70 03/12 1951 97.3 92 140/70 03/12 1551 68 114/64 03/12 1544 68 11464 03/12 1230 74 106/64 03/12 1153 74 106/64 Mental Status Examination The patient feels ready for discharge and seemed to be in good spirits. She had steady gait, she was alert and oriented to time, place, and person. Patient was calm and cooperative. Showed normal psychomotor activity. No abnormal behaviors, no bizarre behaviors, Normal speech, not pressured, not slurred. Good range of affect, less anxious and less depressed. Denied thinking of suicide today, denied thoughts of violence or thoughts of homicide. Denied hallucinations, Denied feeling paranoid, there were no delusions during the interview. Patient was coherent, did not seem to have any thought disorder, partial insight, Seems to have good judgment at least in hypothetical situations. She did not seem to have any difficulties with attention or concentration, no difficulties with information processing. Did not seem to have any deficits in her short-term memory Assessment: Nydia is a 37-year-old White female who presents with suicidal ideation but also fairly daughter for detoxification from alcohol Diagnosis(es): Unspecified depressive disorder Alcohol use disorder Treatment Plan: Continue same treatment Likely D/C home tomorrow Continue Prozac 40 mg daily Biopsychosocial assessment by social media manager, collateral information and aftercare planning Patient will be evaluated daily by psychiatrist for mental status updates as well as medication monitoring
--- NOTE | 2018-03-13 15:54 | SOCIAL WORKER PROG NOTE PSYCH ---
Social Work Progress Note Progress Note Nydia talked about increased racing thoughts and hopelessness compounded by excessive drinking and cocaine use. She reported that she was at a bar and had 12 drinks (vodka) and used cocaine, got in her car and decided to cut her wrist with her moya. She reports going on "three day benders." She said she'll have a week inbetween with no use, but then starts getting the cravings/ itch to use. She said she has been experiencing this pattern for the last 2 years. She has never been in [facility] before. She said she was getting some Prozac for a couple of years through her PCP, but stopped taking it about 4-5 months ago. She is currently living with her boyfriend of 7 years. She did agree to have him in for a family meeting. His name is Sharath John [phone]. She reports no concerns with her relationship. She said she hurt herself, because she was having thoughts that her family would be better off without her. She is tired of this pattern and hurting them in the process. 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 She works 40 hours a week and just started this job 2 weeks ago. She said her Mom has been calling out for her. She talked about how she is a "social butterfly" she enjoys partying and being around people. She described her moods as being depressed some days and elevated others. She reports racing thoughts. Denies any suicidal thoughts today. Rates sad mood on a scale from 0-10 (10 being most severe) at a 2 today. Rates anxiety at a 0. Denies any AH/VH. Father is a recovering alcoholic. Maternal uncle has Schizophrenia. She is looking to connect with an outpatient provider for therapy and med management. She can't commit to an IOP due to work. She is interested in a referral to [facility]. I told her I'd like to have her boyfriend in and set up her referral. She is hoping to d/c tomorrow. I told her I'd like to discuss it with the team and get things in place. Called her boyfriend Sharath. He is only available for a phone conference tomorrow. I scheduled this for 10:30am.
--- NOTE | 2018-03-13 16:31 | SOCIAL WORKER PROG NOTE PSYCH ---
Social Work Progress Note Progress Note The services requested require additional review. You will be contacted regarding the status of this request if further information is needed. An authorization decision will be made within the required timeframes and details of that decision may be found under the member's authorization history. Member Name Member ID Member Subscriber Name Subscriber ID SRIDEVI MARKHAM [id number] 1980 SRIDEVI MARKHAM [id number] Pended Authorization # Client Authorization # Type of Request [id number] CONCURRENT Date of Admission/ Start of Services Requested From Submission Date 03/10/2018 03/13/2018 03/13/2018 Level of Service Type of Service Level of Care Type of Care INPATIENT/HLOC Mental Health Inpatient Inpatient [facility] - Inpatient Hospital Reason Code P76 Provider Name & Address Provider ID Provider Alternate ID NPI # for Authorization SCOTTY COPPOLA [id number] [facility] [id number]
[2018-03-14 08:04] VITALS: BP 118/60
[2018-03-14 08:07] VITALS: BP 118/60
[2018-03-14] MEDS ORDERED: PROZAC40 M1 PO (08:11)
[2018-03-14] MEDS ORDERED: TRI-PREVIFEM T1 EACH PO (08:12)
[2018-03-14] MEDS ORDERED: NALTREXONE HCL50 M1 PO (08:14)
--- NOTE | 2018-03-14 09:09 | Patient Discharge Instructions ---
Psych Discharge Inst General Discharge Information Reason for Admission: SI and recent incident of cutting her wrist Psy Discharge Primary Diag+ Unspecified Dep Disorder Psy Discharge Secondary Diag+ Alcohol Use Disorder Cocaine Use Disorder Summary Tests/Major Procedures There were no significant abnormalities in the laboratory testing, the patient's liver enzymes were within normal limits. Studies Pending at DC: None Patient Instructions Contact Information Your Psychiatrist on [facility] was Robb Mg MD * If you are experiencing an emergency related to this hospitalization, please call [phone] to contact the treating psychiatrist or the psychiatrist-on- call. * To Request a copy of your medical records, please contact the Medical Records Department at [phone]. * To request results of studies pending at the time of discharge, please call [phone]. * Continue your Medications until directed to stop by your Healthcare provider. General Medication Information Please continue to take your new medications and your continued home medications , unless otherwise indicated on your discharge medication list, or unless directed by your MD or CHALK MACHINE OPERATOR to stop them. Special Instructions Diet Regular Activity Normal - Tobacco Use Treatment Offered Post DC Medications Offered: Not Applicable Post DC Tobacco Treatment Plan: Not Applicable - EtOH/Drug Use D/O Treatment Offered Post DC Medications Offered: Script Given-See Med List Post DC EtOH/SubAbuse TX Plan: Other SubAbuse/Dual Pgm Metabolic Screening ([X]) Not Applicable, patient not on a neuroleptic. Advance Directives Does the Patient have Medical Advance Directives No/Refused further info Does Pt have Psychiatric Advance Directives? No/Refused further info Does Patient have a Designated Surrogate Decision Maker: No Information About Psychiatric Advance Directives Provided? Refused Discharge Plan Post Hospital Treatment Plan: IOP in the [place], see Alma Benjamin LCSW's notes
--- NOTE | 2018-03-14 10:21 | SOCIAL WORKER PROG NOTE PSYCH ---
Social Work Progress Note Progress Note Nydia was informed of our 10:30a phone conference with Sharath. She signed a release for [facility] and gave me her new address. Called [facility] [phone] and left a message for intake. Received a message from an Guillermina asking for clinical to be faxed over for review. Phone conference held with her significant other Sharath. Dr. Mg was also present. Sharath stated he was glad that she was receiving help and that it was overdue. He expressed that his only concern was when she was intoxicated, but when not intoxicated there was no self harm behavior or talk. Emphasized the need to have no alcohol in the home. He reports he doesn't drink much and it wasn't a problem. Denies guns in the home. Talked about setting up aftercare through [facility]. He is okay with her coming home today. Talked about getting involved in AA. She has never been to AA. Offered to provide her with a meeting book and encouraged her to try it out. Her Mom will pick her up today at 4:30pm. Her mood was stable today. No SI/HI. Eager to get home, get back to work. Has friends who will encourage her to maintain sobriety. Unfortunately due to having no active insurance we were not able to set up IOP. Connected her to outpatient at [facility] which she can self pay until she gets insurance on 04/22. Guillermina at [facility] gave her an intake for 04/03/18 1:30pm. She also gave info on financial assistance through the hospital that she may be elegible for. Filled out free med form for yNdia to get 2 weeks of meds filled, due to not having insurance.
--- NOTE | 2018-03-14 12:10 | CP SOUTH PROGRESS NOTE PSYCH ---
Psych (Inpt) Progress Note Progress Note The treatment team discussed the patient's progress, treatment plan, and aftercare plans. Treatment team included social work, nursing staff, therapy staff, and psychiatrist. Alma Benjamin LCSW and I met with patient while her fianace was on conference call Vital Signs Date Time Temp Pulse Resp B/P Pulse O2 03/14 0807 97.8 68 118/60 03/14 0804 97.8 68 118/60 03/13 2003 71 98 131/78 03/13 1959 98.7 71 131/78 03/13 1608 89 127/69 Mental Status Examination: The patient seemed to be in good spirits. She was alert and oriented to time, place, and person. Patient was calm and cooperative. She showed normal psychomotor activity. No abnormal or bizarre behaviors. Her speech was not pressured, nor slurred. Nydia reported that she was not feeling anxious, nor depressed. Denied thinking of suicide today, denied thoughts of violence or thoughts of homicide. Denied hallucinations, Denied feeling paranoid, there were no delusions during the interview. Patient was coherent, did not seem to have any thought disorder, partial insight, Seems to have good judgment at least in hypothetical situations. She did not seem to have any difficulties with attention or concentration, no difficulties with information processing. Did not seem to have any deficits in her short-term memory Assessment: Nydia is a 37-year-old White female who presents with suicidal ideation but also fairly daughter for detoxification from alcohol Diagnoses: Unspecified depressive disorder Alcohol use disorder Treatment Plan: D/C Home
--- NOTE | 2018-03-14 12:11 | DISCHARGE SUMMARY REPORT-PSYCH ---
Visit Information Visit Dates/Diagnosis' Admission Date: 03/10/18 Discharge Date: 03/14/18 Reason for Admission: SI and recent incident of cutting her wrist Psy Discharge Primary Diag: Unspecified Dep Disorder Psy Discharge Secondary Diag: Alcohol Use Disorder Cocaine Use Disorder Hospital Course Significant Lab Findings: Lab ALT 31 U/L 03/09/182199 AST 28 U/L 03/09/182199 Albumin 4.4 g/dL 03/09/182199 Alkaline Phosphatase 98 U/L 03/09/182199 Total Bilirubin 0.3 mg/dL 03/09/182199 Total Protein 7.9 g/dL 03/09/182199 Course Complications: The patient did not have any complications while she was on the inpatient psychiatric unit. Consultations: The patient had a history and physical examination by the metal stamper. Please refer to the patient's electronic health record for the details of the H&P. Allergies: Coded Allergies: oxycodone (Severe, UPSET STOMACH 03/09/18) Hospital Course/[place] Response: 03/14/2015: Mental Status Examination: The patient seemed to be in good spirits. She was alert and oriented to time, place, and person. Patient was calm and cooperative. She showed normal psychomotor activity. No abnormal or bizarre behaviors. Her speech was not pressured, nor slurred. Nydia reported that she was not feeling anxious, nor depressed. Denied thinking of suicide today, denied thoughts of violence or thoughts of homicide. Denied hallucinations, Denied feeling paranoid, there were no delusions during the interview. Patient was coherent, did not seem to have any thought disorder, partial insight, Seems to have good judgment at least in hypothetical situations. She did not seem to have any difficulties with attention or concentration, no difficulties with information processing. Did not seem to have any deficits in her short-term memory Assessment: Nydia is a 37-year-old White female who presents with suicidal ideation but also fairly daughter for detoxification from alcohol Diagnoses: Unspecified depressive disorder Alcohol use disorder Treatment Plan: D/C Home Discharge HBIPS - Tobacco Use Treatment Offered Post DC Medications Offered: Not Applicable Post DC Tobacco Treatment Plan: Not Applicable - EtOH/Drug Use D/O Treatment Offered Post DC Medications Offered: Script Given-See Med List Post DC EtOH/SubAbuse [place] Plan: Other SubAbuse/Dual Pgm Metabolic Screening - Screen if on a Neuroleptic Medication - Metabolic screening should include: - Blood Pressure, BMI, Glucose or Hgb A1c, & a - Lipid profile from within the past 365 days. Metabolic Screening ([X]) Not Applicable, patient not on a neuroleptic. Discharge Instructions General Discharge Information Multiple Neuroleptics: ([X]) Not Applicable Discharge Diet Regular Discharge Activity Normal DC Disposition: The patient will be discharged home Referrals Ordered Referrals Provider Referral 04/03/18 For Groups: [[facility]] [facility] Intake 04/03/18 1:30pm [address] [place] [address] Call [phone] for Financial Assistance Prescriptions Stop taking the following medications: Fluoxetine HCl (Fluoxetine HCl) 20 MG TABLET ORAL DAILY Qty = 30 Bupropion HCl (Bupropion XL) 150 MG TAB.ER.24H ORAL Every Morning Qty = 30 Continue taking these medications: Norgestimate-Ethinyl Estradiol (Tri-Previfem Tablet) [id number] 28 TABLET 1 Tablet ORAL DAILY Qty = 28 Comments: Last Taken:RESUME AT HOMELast Taken: Time: This prescription has been renewed Start taking the following new medications: Fluoxetine HCl (Prozac) 40 MG CAPSULE 1 Capsule ORAL Every Morning Qty = 30 No Refills Comments: Last Taken:03/14/18 Time:8AM Naltrexone HCl (Naltrexone HCl) 50 MG TABLET 1 Tablet ORAL DAILY Qty = 30 No Refills Comments: Last Taken:TO START AT HOME Time: Studies Pending at Discharge None Copies To: Bay Larson,
[2018-03-14 12:26] VITALS: BP 105/60
[2018-03-14 12:32] VITALS: BP 105/60
--- NOTE | 2018-03-14 16:12 | SOCIAL WORKER PROG NOTE PSYCH ---
Social Work Progress Note Faxed Referral(s) Referred To: [facility] Behavioral [facility] Transition of Care Documents sent: Health Summary Faxed to: [facility] Fax #: [phone] Faxed by: Alma Benjamin Date faxed: 03/14/18 Time Faxed: [phone]
== END 2018-03-14 16:00 | DRG 754 ==
LOC: ERH 21:11 → CP SOUTH 03-10 08:55 → ERHI 03-10 08:55 → ENTRNSPT 03-10 10:20 → EDTRNSPTSTS 03-10 10:39 → EDTRNSPT 03-10 10:39 → CP SOUTH 03-10 10:42 → CMPTRNSPT 03-10 10:47 → CP SOUTH 03-13 21:46
PROVIDERS: Emergency Medicine
DX: F32.9 Major depressive disorder, single episode, unspecified (principal); F14.90 Cocaine use, unspecified, uncomplicated; F10.10 Alcohol abuse, uncomplicated
CPT/HCPCS: 80307; 81025; 93005; 93010; G0480; J3490